=== PATIENT | male | born 1950 ===

== ENCOUNTER 2019-01-26 05:00 | Day surgery (SDC) | payer OTHER ==
[~2019-01-26 05:00] MED LIST: JANUMET 50-1,01 EACH; SECTRAL 200 MG; TAMBOCOR150 MG
== END 2019-01-26 13:00 | disposition home or self-care (01) ==
LOC: CIR.AMB 05:00
DX: C60.8 Malignant neoplasm of overlapping sites of penis (principal)

== ENCOUNTER 2019-02-25 08:56 | Outpatient (CLI) | payer OTHER | END 2019-02-25 09:43 | disposition home or self-care (01) | LOC: EDBD 08:56 → LAB 08:56 | DX: R97.20 Elevated prostate specific antigen [PSA] (principal) ==

== ENCOUNTER 2019-03-11 07:13 | Outpatient (CLI) | payer OTHER | END 2019-03-11 07:21 | disposition home or self-care (01) | LOC: EDBD 07:13 → SONOGRAMA 07:13 | DX: C61 Malignant neoplasm of prostate (principal); R97.20 Elevated prostate specific antigen [PSA] ==